=== PATIENT | male | born 1995 | race Hispanic/Latino ===

== ENCOUNTER 2019-01-31 05:59 | Day surgery (SDC) | payer OTHER ==
[~2019-01-31] VITALS: Ht 172.7 cm; Wt 65.8 kg
[~2019-01-31 05:59] MED LIST: MONT10TA24 PO; MULT-1192 PO; SODIUM CHLORIDE 0.9% 1000ML 1,000 ML IV ONE
[2019-01-31 06:23] VITALS: BP 129/76
[2019-01-31] MEDS ORDERED: PROPOFOL 10 MG/ML 20ML VIAL IV ONE ×2 (07:09→07:18)
[2019-01-31] MEDS ORDERED: LIDOCAINE HCL-MPF 2% 5ML VIAL ONE (07:10)
[2019-01-31 07:33] VITALS: BP 99/54
[2019-01-31 07:38] VITALS: BP 101/65
[2019-01-31 07:43] VITALS: BP 106/72
[2019-01-31 07:50] VITALS: BP 111/68
== END 2019-01-31 08:10 | disposition home or self-care (01) ==
LOC: DAH 05:59 → ENDO 05:59
PROVIDERS: ATTEND Internal Medicine
DX: K21.0 Gastro-esophageal reflux disease with esophagitis (principal); K31.89 Other diseases of stomach and duodenum; R19.4 Change in bowel habit; J45.909 Unspecified asthma, uncomplicated; F41.9 Anxiety disorder, unspecified; F32.9 Major depressive disorder, single episode, unspecified; Z79.899 Other long term (current) drug therapy
CPT/HCPCS: 43239; 45380; 88305; A4606; J2704 ×2; J3490; J7030